=== PATIENT | female | born 1995 | race Asian ===

== ENCOUNTER 2020-11-04 22:21 | Emergency (ER) | payer OTHER ==
[2020-11-05] MEDS ORDERED: Orphenadrine 100 MG Tab.ER PO STA (00:16)
[2020-11-05] MEDS ORDERED: Ibuprofen 600 MG Tab PO ONE (00:16)
--- NOTE | 2020-11-05 00:22 | EDM.PDOC ---
ED HPI GENERAL MEDICAL PROBLEM - General Chief Complaint: Back Pain or Injury Stated Complaint: BACK PAIN Time Seen by Provider: 11/04/20 23:47 Source of Information: Reports: Patient, Family (Mother) History Limitations: Reports: No Limitations - History of Present Illness INITIAL COMMENTS - FREE TEXT/NARRATIVE: Ms. Rodriguez is a very pleasant 25-year-old woman who now presents to the ED stating that she experienced right lower back pain radiating down her right lower extremity about a month ago. She states that she saw her PCP. She states that no tests were done, but that she was prescribed an anti-inflammatory. She then saw a a chiropractor soon after, who adjusted her lower back, which gave her significant improvement in her symptoms. She was doing well until a week ago, when she developed lower left back pain, felt just above her left buttock, that radiates through her left buttock and down her posterior left thigh to her knee. Her symptoms got worse after she slipped on a step around 20:00 tonight. Her pain is made worse with extension of her left lower extremity, therefore walking is difficult. She also reports some tingling to her left toes for the past hour. No saddle anesthesia, incontinence of bowel or bladder, or weakness of the left lower extremity. The patient has taken Tylenol. No medical evaluation for her left sided sciatica symptoms. Here in the ED, the patient is found to be modestly tachycardic at 110 bpm, otherwise, she is hemodynamically stable, afebrile, saturating 97% on room air. She appears to be comfortable while lying semirecumbent on the gurney. The patient reports that she has had 1 week of a cough, otherwise, prior to this evening, the patient denies having a recent fever, chills, sore throat, ear pain, nasal or sinus congestion, dyspnea, chest pain, palpitations, nausea, vomiting, constipation, diarrhea, abdominal pain, urinary symptoms, recent weight gain or weight loss, recent bloody bowel movements or black bowel movements, recent joint aches, headaches, or rashes. The patient does not recall the name of her PCP at the [facility] clinic. Treatments [employer]OCKST[employer]TER: Reports: Acetaminophen Left Lower Back Pain Score (Numeric/FACES): 10 - Related Data Allergies Allergy/AdvReac Type Severity Reaction Status Date / Time No Known Allergies Allergy Verified 11/04/20 22:36 Home Meds: Home Meds Orphenadrine [Norflex] 1 tab PO Q12H PRN #14 tab.er 11/05/20 [Rx] Past Medical History Endocrine/Metabolic History: Reports: Obesity/BMI 30+ - Past Surgical History HEENT Surgical History: Reports: Oral Surgery (dental extractons) Social & Family History - Tobacco Use Tobacco Use Status *Q: Never Tobacco User Second Hand Smoke Exposure: No - Caffeine Use Caffeine Use: Reports: Energy Drinks - Alcohol Use Alcohol Use History: Yes Alcohol Use Frequency: Socially - Recreational Drug Use Recreational Drug Use: Yes Drug Use in Last 12 Months: Yes Recreational Drug Type: Reports: Marijuana/Hashish (last smoked 2019) - Living Situation & Occupation Living situation: Reports: Single, with Family Occupation: Employed () ED ROS GENERAL - Review of Systems Review Of Systems: Comprehensive ROS is negative, except as noted in HPI. ED EXAM,LOWER BACK PAIN/INJURY - Physical Exam Exam: See Below Exam Limited By: No Limitations General Appearance: Alert, WD/WN, No Apparent Distress Eye Exam: Bilateral Eye: EOMI, Normal Inspection Ears: Normal External Exam, Hearing Grossly Normal Nose: Normal Inspection Throat/Mouth: Normal Inspection, Normal Lips, Normal Voice, No Airway Compromise Head: Atraumatic, Normocephalic Neck: Normal Inspection, Full Range of Motion Respiratory/Chest: No Respiratory Distress, Lungs Clear, Normal Breath Sounds, No Accessory Muscle Use Cardiovascular: Normal Peripheral Pulses, Regular Rate, Rhythm, No Gallop, No JVD, No Murmur, No Rub GI/Abdominal: Normal Bowel Sounds, Soft, Non-Tender, No Organomegaly, No Distention, No Abnormal Bruit, No Mass Back Exam: Other (No visible abnormalities to the patient's back, such as swelling, erythema, ecchymosis, or abrasion. No tenderness to palpation of the vertebral spine or sacrum, however, there is tenderness over the left SI joint. The patient is able to flex her spine to 90 degrees, and extend it to 45 degrees. ) Extremities: Normal Inspection, Normal Range of Motion, Normal Capillary Refill Neurological: Alert, Normal Dorsiflexion, Normal Plantar Flexion, No Motor/Sensory Deficits, Oriented x 3 Psychiatric: Normal Affect Skin Exam: Warm, Dry, Intact, Normal Color, No Rash Course - Vital Signs Last Recorded V/S: Last Vital Signs Temp 36.3 C 06/22/21 22:37 Pulse 110 H 11/04/20 22:37 Resp 16 11/04/20 22:37 BP 127/80 11/04/20 22:37 Pulse Ox 97 11/04/20 22:37 - Orders/Labs/Meds Meds: Medications Discontinued Medications Generic Name Dose Route Start Last Admin Trade Name Araceli PRN Reason Stop Dose Admin Ibuprofen 600 mg 11/05/20 00:16 11/05/20 00:21 Ibuprofen 600 Mg Tab PO 11/05/20 00:17 600 mg ONETIME ONE Administration Orphenadrine Citrate 100 mg 11/05/20 00:16 11/05/20 00:21 Orphenadrine 100 Mg Tab.Er PO 11/05/20 00:17 100 mg ONETIME STA Administration - Re-Assessments/Exams Free Text/Narrative Re-Assessment/Exam: 11/05/20 00:17 As above, the patient initially had right-sided sciatic pain about a month ago, which resolved after chiropractic adjustment, but then she developed left-sided sciatic pain, starting from above her left buttock, extending down to her left knee, about a week ago, which got worse around 20:00 tonight after she slipped on a step. On examination, she has tenderness over her left SI joint. She has remarkable flexibility, not consistent with a herniated intervertebral disc. I suspect that her sciatica-like pain is due to strain/inflammation of the connective tissue over her left SI joint. I am recommending that we treat with OTC ibuprofen and Norflex. I recommended that the patient to stay active, especially with swimming. Stretching is good, as well. In this case, chiropractic may also be of some benefit. If her symptoms fail to improve within about a week, I would like her to follow-up with her PCP. Departure - Departure Time of Disposition: 00:18 Disposition: Home, Self-Care 01 Condition: Good Clinical Impression: Left sided sciatica - Discharge Information *PRESCRIPTION DRUG MONITORING PROGRAM REVIEWED*: Not Applicable *COPY OF PRESCRIPTION DRUG MONITORING REPORT IN PATIENT MARGARETH: Not Applicable Prescriptions: Orphenadrine [Norflex] 1 tab PO Q12H PRN #14 tab.er PRN Reason: Muscle Spasm - Painful Instructions: Sciatica, [id number] Referrals: PCP,Unknown [Ordering Only Provider] - Forms: ED Department Discharge Additional Instructions: You were seen in the emergency room for pain felt above your left buttock, radiating down to your left knee, for the past week, made worse tonight after he slipped on some steps. Based on your history and physical examination, you have left sciatica, due to strain/inflammation of connective tissue overlying her left SI joint, NOT due to a herniated intervertebral disc. We recommend you take [id number] ibuprofen, 3 tablets (600 mg) with food, [id number] initially, then every 8 hours as needed for discomfort. You have been started on the muscle relaxant Norflex, and a prescription for Norflex has been sent to the [facility] located in the [employer]. Take 1 tablet of Norflex every 12 hours, starting this morning, 11/05/2020, as prescribed. As discussed, it is very important that you stay active. Swimming is best, but walking is good as well. Also consider stretching. As discussed, in your particular case, chiropractic adjustment may also be of benefit. If you continue to have pain after 1 week, we recommend you follow-up with your PCP for further evaluation. If any other problems, please do not hesitate to return to the ER. Sepsis Event Note (ED) - Evaluation Sepsis Screening Result: No Definite Risk
== END 2020-11-05 00:30 | disposition home or self-care (01) ==
LOC: JD.ED 22:21
DX: M54.42 Lumbago with sciatica, left side (principal); E66.9 Obesity, unspecified; Z68.35 Body mass index [BMI] 35.0-35.9, adult
CPT/HCPCS: 99283; A9270